=== PATIENT | female | born 2000 | race Caucasian/White ===

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

== ENCOUNTER 2022-02-07 03:33 | Emergency (ER) | payer BC, OTHER ==
[2022-02-07] MEDS ORDERED: Ketorolac 30 MG/ML SDV IVPUSH ONE (04:10)
[2022-02-07] MEDS ORDERED: Prochlorperazine 10 MG/2 ML SDV IVPUSH ONE (04:11)
[2022-02-07] MEDS ORDERED: diphenhydrAMINE 50 MG/ML SDV IVPUSH ONE (04:36)
== END 2022-02-07 05:11 | disposition home or self-care (01) ==
LOC: JP.ED 03:33
DX: G43.009 Migraine without aura, not intractable, without status migrainosus (principal); Z91.040 Latex allergy status; Z88.8 Allergy status to other drugs, medicaments and biological substances; Z86.16 Personal history of COVID-19
CPT/HCPCS: 96374; 96375; 99283; J0780; J1200; J1885

== ENCOUNTER 2023-07-25 08:08 | Emergency (ER) | payer OTHER ==
[2023-07-25] MEDS ORDERED: Sodium Chloride 0.9% 1,000 ML IV ONE (08:52)
[2023-07-25] MEDS ORDERED: Prochlorperazine 10 MG/2 ML SDV IVPUSH ONE (08:53)
[2023-07-25] MEDS ORDERED: diphenhydrAMINE 50 MG/ML SDV IVPUSH ONE (08:53)
[2023-07-25] MEDS ORDERED: Ketorolac 15 MG/ML SDV IVPUSH ONE (08:53)
== END 2023-07-25 10:25 | disposition home or self-care (01) ==
LOC: JP.ED 08:08
DX: G43.909 Migraine, unspecified, not intractable, without status migrainosus (principal); Z91.040 Latex allergy status; Z88.8 Allergy status to other drugs, medicaments and biological substances; Z86.16 Personal history of COVID-19; Z79.899 Other long term (current) drug therapy
CPT/HCPCS: 96361; 96374; 96375; 99283; J0780; J1200; J1885; J7030